=== PATIENT | male | born 1980 | race Caucasian/White ===

== ENCOUNTER 2018-09-20 15:50 | Emergency (ER) | payer OTHER ==
[2018-09-20 16:10] VITALS: BP 138/75
--- NOTE | 2018-09-20 16:27 | UC ---
Skin Complaint HPI - HPI Summary HPI Summary: Pt presents with concern for infected wound to right anterior santamaria. Pt states he has been applying triple antibiotic ointment, cleaning with peroxide but is concerned that the wound is infected. denies fever, chills, drainage or tenderness. - History of Current Complaint Chief Complaint: UCLowerExtremity Time Seen by Provider: 09/20/18 16:20 Stated Complaint: RT LEG COMP Hx Obtained From: Patient Onset/Duration: Sudden Onset, Lasting Days, Still Present Skin Exposure Onset/Duration: Days Ago Timing: Constant Onset Severity: Mild Current Severity: Mild Pain Intensity: 0 Location: Discrete - right anterior distal santamaria Aggravating Factor(s): Nothing Alleviating Factor(s): Nothing Associated Signs & Symptoms: Positive: Negative Related History: Trauma - Allergy/Home Medications Allergies/Adverse Reactions: Allergies Allergy/AdvReac Type Severity Reaction Status Date / Time No Known Allergies Allergy Verified 09/20/18 16:03 Home Medications: Home Medications Acetaminophen [Tylenol Extra Strength] 1,500 mg PO ONCE PRN 09/20/18 [History Confirmed 09/20/18] PMH/Surg Hx/FS Hx/Imm Hx Previously Healthy: Yes - Surgical History Surgical History: Yes Surgery Procedure, Year, and Place: T&A - Family History Known Family History: Positive: Cardiac Disease - Social History Occupation: Employed Full-time Lives: With Family Alcohol Use: Occasionally Substance Use Type: None Smoking Status (MU): Heavy Every Day Tobacco Smoker Type: Cigarettes Amount Used/How Often: 1/2PPD Have You Smoked in the Last Year: Yes Review of Systems All Other Systems Reviewed And Are Negative: Yes Constitutional: Positive: Negative Skin: Positive: Other - mild erythmea and dried scab Eyes: Positive: Negative ENT: Positive: Negative Respiratory: Positive: Negative Cardiovascular: Positive: Negative Gastrointestinal: Positive: Negative Genitourinary: Positive: Negative Motor: Positive: Negative Neurovascular: Positive: Negative Musculoskeletal: Positive: Negative Neurological: Positive: Negative Psychological: Positive: Negative Is Patient Immunocompromised?: No Physical Exam Triage Information Reviewed: Yes Appearance: Well-Appearing, Obese Vital Signs: Initial Vital Signs Temp 96.7 F 09/20/18 16:04 Pulse 79 09/20/18 16:04 Resp 17 09/20/18 16:04 BP 138/75 09/20/18 16:04 Pulse Ox 98 09/20/18 16:04 Vital Signs Reviewed: Yes Eye Exam: Normal ENT Exam: Normal Dental Exam: Normal Neck exam: Normal Respiratory Exam: Normal Respiratory: Positive: No respiratory distress Musculoskeletal Exam: Normal Neurological Exam: Normal Psychological Exam: Normal Skin Exam: Other - healing wound right anterior santamaria Course/Dx - Course Course Of Treatment: Pt wa given instructions to monitor for worsening infection. - Diagnoses Provider Diagnosis: Healing wound Discharge - Sign-Out/Discharge Documenting (check all that apply): Patient Departure All imaging exams completed and their final reports reviewed: No Studies - Discharge Plan Condition: Stable Disposition: HOME Patient Education Materials: Acute Wound Care (ED), Wound Healing and Your Diet (ED) Referrals: Chris Oconnor MD [Medical Doctor] - - Billing Disposition and Condition Condition: STABLE Disposition: Home
== END 2018-09-20 16:39 | disposition home or self-care (01) ==
LOC: UCCORT 15:50
DX: S81.801A Unspecified open wound, right lower leg, initial encounter (principal); F17.210 Nicotine dependence, cigarettes, uncomplicated
CPT/HCPCS: 99211; G0463